=== PATIENT | male | born 1965 | race Caucasian/White ===

== ENCOUNTER 2018-04-26 17:08 | Inpatient (IN) | payer BC ==
[~2018-04-26] VITALS: Ht 177.8 cm; Wt 120.4 kg
[~2018-04-26 17:08] MED LIST: ACET325 PO; ASPI81CH PO; ATOR10 PO; ATOR40TA PO; Acetaminophen325 M1 PO; Allegra-D 24 H1 EACH PO; Azor 10-20 MG1 EACH; Azor 10-40 MG1 EACH PO; B-125000 MC2 PO; CARV25 PO; CLOP75 PO; CYAN1000 PO; Carvedilol12.5 MG PO; FISH OIL 1,0001 EAC1 PO; Flonase 0.05% N16 GM; LOSA25 PO; NITROGLYCERIN4.1 GM SL; Prinivil10 MG PO; ROXICODONE5 MG PO; SILD50TA PO
[2018-04-26] MEDS ORDERED: CHOL10002 PO (18:03)
[2018-04-26 18:19] LABS: BASOPHILS ABSOLUTE AUTO 0.06 K/mm3 (0.00-0.23); BASOPHILS PERCENT AUTO 1 % (0-2); EOSINOPHILS ABSOLUTE AUTO 0.24 K/mm3 (0.00-0.68); EOSINOPHILS PERCENT AUTO 4 % (0-6); Hematocrit 45.3 % (37.0-53.0); Hemoglobin 15.2 g/dL (13.5-17.5); IMMATURE GRAN ABSOLUTE AUTO 0.03 K/mm3 (0.00-0.10); IMMATURE GRAN PERCENT AUTO 0 % (0-1); LYMPHOCYTES ABSOLUTE AUTO 3.05 K/mm3 (0.84-5.20); LYMPHOCYTES PERCENT AUTO 45 % (21-46); MONOCYTES ABSOLUTE AUTO 0.57 K/mm3 (0.16-1.47); MONOCYTES PERCENT AUTO 8 % (4-13); Mean Corpuscular HGB 31.5 pg (26.0-34.0); Mean Corpuscular HGB Conc 33.6 g/dL (31.5-36.5); Mean Corpuscular Volume 94 fL (80-100); Mean Platelet Volume 9.2 fL (9.1-12.4); NEUTROPHILS ABSOLUTE AUTO 2.89 K/mm3 (1.96-9.15); NEUTROPHILS PERCENT AUTO 42 % (41-73); Platelet Count 215 K/mm3 (150-400); RDW Coefficient Variation 12.6 % (11.7-14.2); RDW Standard Deviation 43.1 fL (35.1-46.3); Red Blood Cell Count 4.83 M/mm3 (4.30-5.90); White Blood Cell Count 6.84 K/mm3 (4.00-11.30)
[2018-04-26 18:36] LABS: International Normalized Ratio 1.03; Prothrombin Time Results 10.9 Sec (9.7-11.5)
[2018-04-26 18:47] LABS: Alanine Aminotransfer (ALT/SGP 38 U/L (12-78); Albumin, Blood 3.8 g/dL (3.4-5.0); Albumin/Globulin Ratio 1.1 (0.8-1.8); Alk Phos 61 U/L (50-136); Anion Gap 7 mmol/L (6-16); Aspartate Aminotrans (AST/SGOT 16 U/L (12-37); Bilirubin, Total 0.9 mg/dL (0.1-1.0); Blood Urea Nitrogen 16 mg/dL (8-24); CO2, Blood 27 mmol/L (21-32); Calcium, Blood 8.8 mg/dL (8.5-10.1); Chloride, Blood 107 mmol/L (98-108); Creatinine, Blood 0.89 mg/dL (0.60-1.20); Globulin, Blood 3.4 g/dL (2.2-4.0); Glomerular Filtration Rate >60 (60-); Glucose, Blood 107 mg/dL (70-99); Potassium, Blood 3.5 mmol/L (3.5-5.5); Sodium, Blood 141 mmol/L (136-145); Total Protein, Blood 7.2 g/dL (6.4-8.2)
--- NOTE | 2018-04-26 18:47 | NUR ---
ARRIVAL TO UNIT Assumed care of pt upon arrival to unit at 1720. Pt was direct admit from Dr Bolanos. Accompanied to room PCU 11 by his significant other and admitting. Pt arrived via wheelchair and self-transferred to bed. IV access started. Labs drawn from IV start. Telemetry applied. Pt denies chest pain. Pt tells this RN that he has had occasional intermittent chest pain since he had his SD. Pt states he has been having shortness of breath for about five months that has been progressively worsening. This RN inquires about pt's wishes if his heart stops beating and he stops breathing. This RN asks pt if he is okay with chest compressions, medications, intubation, and defibrillation. Pt states "yes" and adds on that he does not want long-term life support. Dr Bolanos called unit to discuss orders with this RN. Cardiology consult notified. Pt has been pleasant and in good spirits since arrival to unit, joking with staff. CHRISTOPHER stockings applied for VTE prophylaxis. Bed in lowest position. Call light in reach. Pt denies need at this time. Will continue to closely monitor until care handoff and bedside report with oncoming RN.
[2018-04-27 02:37] LABS: Anion Gap 10 mmol/L (6-16); Blood Urea Nitrogen 16 mg/dL (8-24); Bun/Creatinine Ratio 15.5 (12.0-20.0); CO2, Blood 23 mmol/L (21-32); Calcium, Blood 8.5 mg/dL (8.5-10.1); Chloride, Blood 108 mmol/L (98-108); Creatinine, Blood 1.03 mg/dL (0.60-1.20); Glomerular Filtration Rate >60 (60-); Glucose, Blood 103 mg/dL (70-99); Potassium, Blood 3.6 mmol/L (3.5-5.5); Sodium, Blood 141 mmol/L (136-145); Troponin I 0.022 ng/mL (0.000-0.040)
--- NOTE | 2018-04-27 05:42 | NUR ---
SHIFT SUMMARY PATIENT PLEASENT AND COOPERATIVE THROUGHOUT THE NIGHT. PATIENT HAS DENIED ANY CHEST PAIN LAST NIGHT. HOWEVER, STATES THAT HE HAS A MILD HEADACHE, PATIENT DENIED NEED FOR AN ICE PACK, PATIENT APPEARS TO EASILY FALL BACK ASLEEP. PATIENT EDUCATED TO NOTIFY RN RIGHT AWAY IF ANY CHEST PAIN OCCURS, PATIENT VERBALIZES UNDERSTANDING. PATIENT APPEARED TO SLEEP WELL THROUGHOUT MOST OF THE NIGHT. PATIENT'S SIGNFICANT OTHER STAYED THE NIGHT AT THE BEDSIDE. VITAL SIGNS CHARTED. WILL CONTINUE TO MONITOR PATIENT AND REPORT TO ONCOMING RN.
--- NOTE | 2018-04-27 07:36 | NUR ---
BEGINNING OF SHIFT Assumed care of pt at 0700. Report received from Gloria SAWYER. Pt independent in room. Pt's significant other in room. Pt denies chest pain at this time. Dr Bolanos in to see patient this AM. Provider aware that pt is not wearing nitro paste due to concern that his BP will drop. Pt states he has had a headache since last night. Dr Mayers in to see pt at this time. Pt on room air. Sinus rhythm per telemetry. Bed in lowest position. Call light in reach. Pt denies need at this time.
--- NOTE | 2018-04-27 18:26 | NUR ---
SHIFT SUMMARY No acute changes to shift assessment. Pt continually denies chest pain or shortness of breath. No events per telemetry. Will continue to closely monitor until care handoff and bedside report with oncoming RN.
--- NOTE | 2018-04-27 21:59 | NUR ---
PM NOTE. ASSUMED CARE OF PT APROX 1900, PT IS A&Ox4 AND IND IN THE ROOM, PT'S IS AT THE BED SIDE AND PLANS TO SPEND THE NIGHT, PILLOW AND BLANKET OFFERED. PT ADMITTED DUE TO CP AND SOB INCREASING OVER x5 MONTHS. PT CURRENTLY DENIES CHEST PAIN/PRESSURE OR SOB AT THIS TIME. TELE INTACT, NSR IN THE 60'S PER CASHIER GAMBLING, PT'S BP 139/88, TRACE EDEMA NOTED TO THE PT'S BLE. PT'S L/S CLEAR T/O DIM IN THE BASES, PT IS ON RA WITH STATS >90%. BT PRESENT AND HYPERACTIVE, ABD IS SOFT AND NONTENDER TO PALP. PT IS SCHEDULED FOR 2ND PART OF STRESS TEST AND IS TO BE NPO A 0400 EXCEPT WATER. CALL LIGHT IN REACH, BED IS LOCKED AND LOW WILL CONTINUE TO MONITOR.
--- NOTE | 2018-04-28 05:04 | NUR ---
SHIFT SUMMARY. NO ACUTE CHANGES NOTED THIS SHIFT. PT HAS BEEN NPO SINCE 0400 FOR 2ND PART OF STRESS TEST THIS AM. PT DENIES ANY CHEST PAIN/PRESSURE, SOB OR N/V, PT'S VS HAVE BEEN STABLE T/O SHIFT WITH NO CARDIAC EVENTS ON TELE. PT'S HR HAS BEEN IN THE MID 50'S DURING SLEEP, THIS HAS BEEN THE PT'S NORMAL HR DURING SLEEP THIS ADMIT. CALL LIGHT IN REACH, BED IS LOCKED AND LOW WILL CONTINUE TO MONITOR UNTIL REPORT IS GIVEN TO ONCOMING RN.
--- NOTE | 2018-04-28 18:05 | NUR ---
END OF SHIFT SUMMARY; PT HAD 2ND PART OF STRESS TEST TODAY. IS ANXIOUS TO GO HOME. BLOOD PRESSURE IS SLIGHTLY ELEVATED THIS AFTERNOON. PER 2ND PART OF STRESS WILL BE READ IN THE AM AND WILL FOLLOW UP WITH THIS PATIENT IN AM.
--- NOTE | 2018-04-29 04:42 | NUR ---
SHIFT SUMMARY PT A&O X4, CALM AND COOPERATIVE, EAGER TO DISCHARGE HOME. WHEN ASKED ABOUT CP, PT STATES "OH JUST THE NORMAL. IT'S NOT A PAIN. LIKE I TOLD DR WILLINGHAM, SOMETHING'S JUST THERE. IT'S LIKE A PRESSURE." PT'S S/O AT THE BEDSIDE ADDS, "IT'S CONSTANT." OTHERWISE NO COMPLAINTS FROM PT. VSS. LUNG SOUNDS CLEAR T/O, SPO2 > 92% ON RA. MONITOR SHOWS NSR, HR 60'S-80'S. PT IN BED SLEEPING MAJORITY OF NIGHT. PT WEARING ANTIEMBOLIC STOCKINGS. WILL CONTINUE TO MONITOR AND PROVIDE CARE UNTIL REPORT OFF TO DAY SHIFT RN.
--- NOTE | 2018-04-29 08:31 | NUR ---
pt saw Dr. Bolanos this am and Dr. Mayers, he will be going to the flower shop laborer/designer for angio this am. will keep npo except for meds. pt a/ox3, s.o. in room. lungs are clear dim in bases, resp even and unlabored, no cough noted, hrr, tele in place running sr per monitor, see strip, no edema noted to b/l le, ppp+2, cap refill <3sec, vs stable, afebrile, iv site is clear and patent, btx4, abd flat soft nontender, voids without diff, skin c/w/d, maew, sara, call light in reach.
--- NOTE | 2018-04-29 12:30 | NUR ---
pt brought back to room, he is awake, tr band to right wrist, site has some old blood, looks good no swelling or bruising, vs stable, pt reports he is doing ok. call light in reach.
--- NOTE | 2018-04-29 14:16 | NUR ---
pt visiting with family, states he still has a h/a after tylenol, did not want anything else. tr band is c/d/i. call light in reach.
--- NOTE | 2018-04-29 18:45 | NUR ---
HAVE BEEN WORKING ON DEFLATING TR BAND, SITE HAS SOME OLD OOZING, ALMOST DEFLATED AT THIS POINT, PT UP TO CHAIR, IN ROOM. CALL LIGHT IN REACH.
--- NOTE | 2018-04-30 05:49 | NUR ---
SHIFT SUMMARY PT A&O X4, INDEPENDENT IN ROOM. R RADIAL ACCESS SITE TR BAND DEFLATION AND REMOVAL WNL, NO BLEEDING, NO HEMATOMA. TRANSPARENT DRESSING COVERING SITE W/ ARM BOARD IN PLACE & PT INSTRUCTION NOT TO USE OR BEND R ARM. PT LUNG SOUNDS CLEAR T/O, SPO2 > 92% ON RA. MONITOR SHOWING NSR, HR 60'S-80'S. PT DENIES CP. PT AWAITING DISCUSSION W/ MD CARLOS BEFORE DISCHARGING HOME TODAY. PT AWAKE IN ROOM, PATIENTLY WAITING. WILL CONTINUE TO MONITOR AND PROVIDE CARE UNTIL REPORT OFF TO DAY SHIFT RN.
--- NOTE | 2018-04-30 09:33 | NUR ---
pt doing well this am, he is dressed and ready to go, just waiting on who came in and spoke with him, charge nurse went over all instructions with him, he verbalized understanding, also instructions on tr band care, arm board in place, iv removed intact, left via wheelchair with digital content marketing manager in attendence.
== END 2018-04-30 09:17 | disposition home or self-care (01) | DRG 287 ==
LOC: PCU 17:08
PROVIDERS: ADMIT Family Medicine
PROC: B2111ZZ Fluoroscopy of Multiple Coronary Arteries using Low Osmolar Contrast (ICD-10-PCS; principal; 2018-04-29)
DX: I25.119 Atherosclerotic heart disease of native coronary artery with unspecified angina pectoris (principal); I25.9 Chronic ischemic heart disease, unspecified; G47.33 Obstructive sleep apnea (adult) (pediatric); E78.5 Hyperlipidemia, unspecified; I77.810 Thoracic aortic ectasia; Z95.5 Presence of coronary angioplasty implant and graft; Z68.38 Body mass index [BMI] 38.0-38.9, adult; E66.9 Obesity, unspecified; Z79.82 Long term (current) use of aspirin
CPT/HCPCS: 36415; 71046; 78452; 80048; 80053; 83880; 84484; 85025; 85347; 85610; 85730; 93005; 93010; 93017; 93454; 96372; 99152; 99153; A9500; C1725; C1769; C1874; C1887; C1894; C9600; G0378; J1644; J1650; J2250; J3010; J7030; J7040; Q9967

== ENCOUNTER 2019-04-26 08:23 | Observation (INO) | payer BC ==
[~2019-04-26] VITALS: Ht 177.8 cm; Wt 123.3 kg
[~2019-04-26 08:23] MED LIST changes: -B-125000 MC2 PO; -FISH OIL 1,0001 EAC1 PO
[2019-04-26] MEDS ORDERED: CLOPIDOGREL75 MG PO (08:48)
[2019-04-26] MEDS ORDERED: LOSARTAN POTASS25 M2 PO (08:48)
[2019-04-26] MEDS ORDERED: ISOSORBIDE MONO10 MG PO (08:48)
[2019-04-26] MEDS ORDERED: CARVEDILOL12.5 MG PO (08:48)
[2019-04-26] MEDS ORDERED: ATORVASTATIN CA40 M1 PO (08:48)
[2019-04-26 09:14] LABS: BASOPHILS ABSOLUTE AUTO 0.06 K/mm3 (0.00-0.23); BASOPHILS PERCENT AUTO 1 % (0-2); EOSINOPHILS ABSOLUTE AUTO 0.14 K/mm3 (0.00-0.68); EOSINOPHILS PERCENT AUTO 2 % (0-6); Hematocrit 46.1 % (37.0-53.0); Hemoglobin 15.4 g/dL (13.5-17.5); IMMATURE GRAN ABSOLUTE AUTO 0.03 K/mm3 (0.00-0.10); IMMATURE GRAN PERCENT AUTO 0 % (0-1); LYMPHOCYTES ABSOLUTE AUTO 2.45 K/mm3 (0.84-5.20); LYMPHOCYTES PERCENT AUTO 35 % (21-46); MONOCYTES ABSOLUTE AUTO 0.56 K/mm3 (0.16-1.47); MONOCYTES PERCENT AUTO 8 % (4-13); Mean Corpuscular HGB 31.7 pg (26.0-34.0); Mean Corpuscular HGB Conc 33.4 g/dL (31.5-36.5); Mean Corpuscular Volume 95 fL (80-100); Mean Platelet Volume 9.5 fL (9.1-12.4); NEUTROPHILS ABSOLUTE AUTO 3.72 K/mm3 (1.96-9.15); NEUTROPHILS PERCENT AUTO 54 % (41-73); Platelet Count 207 K/mm3 (150-400); RDW Coefficient Variation 12.3 % (11.7-14.2); RDW Standard Deviation 43.5 fL (35.1-46.3); Red Blood Cell Count 4.86 M/mm3 (4.30-5.90); White Blood Cell Count 6.96 K/mm3 (4.00-11.30)
[2019-04-26 09:31] LABS: Alanine Aminotransfer (ALT/SGP 35 U/L (12-78); Albumin, Blood 3.9 g/dL (3.4-5.0); Albumin/Globulin Ratio 1.1 (0.8-1.8); Alk Phos 69 U/L (50-136); Anion Gap 5 mmol/L (6-16); Aspartate Aminotrans (AST/SGOT 18 U/L (12-37); Bilirubin, Total 0.5 mg/dL (0.1-1.0); Blood Urea Nitrogen 16 mg/dL (8-24); Bun/Creatinine Ratio 18.5 (12.0-20.0); CO2, Blood 27 mmol/L (21-32); Calcium, Blood 8.6 mg/dL (8.5-10.1); Chloride, Blood 111 mmol/L (98-108); Creatinine, Blood 0.87 mg/dL (0.60-1.20); Globulin, Blood 3.7 g/dL (2.2-4.0); Glomerular Filtration Rate >60 (60-); Glucose, Blood 111 mg/dL (70-99); Potassium, Blood 4.2 mmol/L (3.5-5.5); Sodium, Blood 143 mmol/L (136-145); Total Protein, Blood 7.6 g/dL (6.4-8.2); Troponin I 0.016 ng/mL (0.000-0.040)
[2019-04-26] MEDS ORDERED: VITAMIN B-125000 MC2 PO (15:00)
[2019-04-26] MEDS ORDERED: VITAMIN D325 MCG PO (15:00)
[2019-04-26] MEDS ORDERED: Aspir 8181 MG PO (15:00)
[2019-04-26] MEDS ORDERED: FISH OIL 1,0001 EAC1 PO (15:00)
--- NOTE | 2019-04-26 17:50 | NUR ---
PT AOX4 AND COOPERATIVE OF CARE. PT INDEPENDENT IN ROOM AND CAN CALL APPROPRIATELY. PT STATES HE STILL HAS MILD CHEST PAIN AT A 3 WHEN HE BREATHS IN. LABS ARE UNREMARKABLE AT THIS TIME. WILL CONTINUE TO MONITOR.
[2019-04-27 05:20] LABS: BASOPHILS ABSOLUTE AUTO 0.07 K/mm3 (0.00-0.23); BASOPHILS PERCENT AUTO 1 % (0-2); EOSINOPHILS ABSOLUTE AUTO 0.12 K/mm3 (0.00-0.68); EOSINOPHILS PERCENT AUTO 2 % (0-6); Hematocrit 40.6 % (37.0-53.0); Hemoglobin 13.8 g/dL (13.5-17.5); IMMATURE GRAN ABSOLUTE AUTO 0.02 K/mm3 (0.00-0.10); IMMATURE GRAN PERCENT AUTO 0 % (0-1); LYMPHOCYTES ABSOLUTE AUTO 2.86 K/mm3 (0.84-5.20); LYMPHOCYTES PERCENT AUTO 46 % (21-46); MONOCYTES ABSOLUTE AUTO 0.56 K/mm3 (0.16-1.47); MONOCYTES PERCENT AUTO 9 % (4-13); Mean Corpuscular HGB 32.1 pg (26.0-34.0); Mean Corpuscular Volume 94 fL (80-100); Mean Platelet Volume 9.5 fL (9.1-12.4); NEUTROPHILS ABSOLUTE AUTO 2.54 K/mm3 (1.96-9.15); NEUTROPHILS PERCENT AUTO 41 % (41-73); Platelet Count 168 K/mm3 (150-400); RDW Coefficient Variation 12.6 % (11.7-14.2); RDW Standard Deviation 43.3 fL (35.1-46.3); White Blood Cell Count 6.17 K/mm3 (4.00-11.30)
--- NOTE | 2019-04-27 05:40 | NUR ---
PT admitted for OBS after co chest pain and rt hand pain with hx of cardiac stents x 4. all troponins neg and PT has no chest pain this AM. On tele monitoring with only NSR. Spouse roomed in and supportive.
[2019-04-27 05:49] LABS: Alanine Aminotransfer (ALT/SGP 32 U/L (12-78); Albumin, Blood 3.3 g/dL (3.4-5.0); Albumin/Globulin Ratio 1.1 (0.8-1.8); Alk Phos 56 U/L (50-136); Anion Gap 8 mmol/L (6-16); Aspartate Aminotrans (AST/SGOT 19 U/L (12-37); Bilirubin, Total 0.6 mg/dL (0.1-1.0); Blood Urea Nitrogen 12 mg/dL (8-24); Bun/Creatinine Ratio 13.9 (12.0-20.0); CO2, Blood 24 mmol/L (21-32); Calcium, Blood 8.4 mg/dL (8.5-10.1); Chloride, Blood 111 mmol/L (98-108); Creatinine, Blood 0.86 mg/dL (0.60-1.20); Globulin, Blood 2.9 g/dL (2.2-4.0); Glomerular Filtration Rate >60 (60-); Glucose, Blood 105 mg/dL (70-99); Potassium, Blood 4.1 mmol/L (3.5-5.5); Sodium, Blood 143 mmol/L (136-145); Total Protein, Blood 6.2 g/dL (6.4-8.2)
--- NOTE | 2019-04-27 12:06 | NUR ---
ECHO COMPLETED AND RESULTS PENDING.
--- NOTE | 2019-04-27 13:31 | NUR ---
REPORT PROVIDED TO HESHAM CAROLINA WHO'S NOW RESUMING CARE.
--- NOTE | 2019-04-27 14:14 | NUR ---
Upon receiving an admit referral for Advance Directive education, I visit patient. Patient's spouse, Love, is bedside. They tell me about patient's medical history and about the current plan of care. They also explain that they have an advance directive at home that is not filed and that Love is "set" as patient's "medical power of senior attorney" and that they apparently took care of this last hospitalization. They state that they have no interest in further education. I will continue to remain available to patient and family.
--- NOTE | 2019-04-27 18:02 | NUR ---
DISCHARGE NOTE DR. ORELLANA INFORMED THIS RN THAT PATIENT COULD DISCHARGE AND SHE WOULD FOLLOW UP WITH THE ECHO RESULTS. PATIENT REFUSED ESCORT OUT OF THE BUILDING. PATIENT AMBULATED SELF, WITH OFF THE UNIT. PATIENT STATED SHE WOULD MAKE FOLLOW UP APPOINTMENTS.
== END 2019-04-27 17:35 | disposition home or self-care (01) ==
LOC: ER 08:23 → MEDS 13:16
PROVIDERS: Nurse Practitioner Acute Care; Physician Assistant; ADMIT Family Medicine
DX: R07.9 Chest pain, unspecified (principal); I10 Essential (primary) hypertension; G47.33 Obstructive sleep apnea (adult) (pediatric); I25.2 Old myocardial infarction; E78.00 Pure hypercholesterolemia, unspecified; Z99.89 Dependence on other enabling machines and devices; I25.10 Atherosclerotic heart disease of native coronary artery without angina pectoris; Z95.5 Presence of coronary angioplasty implant and graft; Z88.2 Allergy status to sulfonamides; Z88.8 Allergy status to other drugs, medicaments and biological substances; Z79.82 Long term (current) use of aspirin; Z79.899 Other long term (current) drug therapy; Z23 Encounter for immunization
CPT/HCPCS: 36415; 71046; 80053; 83690; 83880; 84484; 85025; 85379; 93005; 93010; 93306; 96360; 96372; 96372-59; 99285-25; A9270-GY; G0378; J1650; J7030